=== PATIENT | male | born 1950 | race Two or more races ===

== ENCOUNTER 2024-01-04 08:01 | Inpatient (IN) | payer MEDICARE, OTHER ==
[~2024-01-04] VITALS: Ht 160 cm; Wt 63.0 kg
[2024-01-04] MEDS: cloNIDine HCL 0.1 MG TAB PO ONE (09:12)
[2024-01-04 09:35] LABS: Basophils # (auto) 0 10 ^3/uL (0-0.2); Basophils % (auto) 0.5 % (0.0-2.0); Eosinophils # (auto) 0.1 10 ^3/uL (0-0.8); Eosinophils % (auto) 1.6 % (0.0-7.0); Hematocrit 42.6 % (41.0-53.0); Hemoglobin 15.2 g/dL (13.5-17.5); Lymphocytes # (auto) 1.3 10 ^3/uL (0.4-5.4); Lymphocytes % (auto) 19.2 % (10.0-50.0); Mean Corpuscular Hemoglobin 32.3 pg (28.0-32.0); Mean Corpuscular Hgb Conc. 35.7 g/dL (32.0-36.0); Mean Corpuscular Volume 90.4 fL (80.0-100.0); Monocytes # (auto) 0.5 10 ^3/uL (0-1.3); Monocytes % (auto) 7.1 % (0.0-12.0); Neutrophils # (auto) 4.8 10 ^3/uL (1.6-8.6); Neutrophils % (auto) 71.6 % (37.0-80.0); Nucleated Red Blood Cells % 0.1 %; Platelet Count (auto) 308 10^3/uL (140-450); Red Blood Cells 4.71 10^6/uL (4.5-5.90); White Blood Cell 6.7 10^3/uL (4.4-10.8)
[2024-01-04 09:47] LABS: Chloride 94 mmol/L (98-107); Potassium 4.1 mmol/L (3.5-5.1); Sodium 128 mmol/L (136-145)
[2024-01-04 09:48] LABS: Anion Gap 6 (5-15); Carbon Dioxide 28 mmol/L (20-30)
[2024-01-04 09:53] LABS: BUN/Creatinine Ratio 10.1 (10.0-20.0); Blood Urea Nitrogen 9 mg/dL (9-23); Glucose 97 mg/dL (74-106)
[2024-01-04 12:00] VITALS: PULSE 61; RESP 18; O2SAT 100
[2024-01-04] MEDS ORDERED: ONDANSETRON HCL 4 MG/2 ML VIAL IV PRN (13:30)
[2024-01-04] MEDS ORDERED: MORPHINE SULFATE INJ 2 MG/ml SYRG IV PRN (13:30)
[2024-01-04] MEDS ORDERED: DOCUSATE SOD 100 MG CAP PO PRN (13:30)
[2024-01-04] MEDS ORDERED: MECLIZINE HCL 25 MG TAB PO PRN (13:30)
[2024-01-04] MEDS ORDERED: NITROGLYCERIN 0.4 MG SL TAB SL PRN (13:30)
[2024-01-04] MEDS ORDERED: HYDROcodone-ACET 5/325MG TAB PO PRN (13:30)
[2024-01-04] MEDS ORDERED: ACETAMINOPHEN 325 MG TAB PO PRN (13:30)
[2024-01-04] MEDS: SODIUM CHLORIDE 0.9% 1,000 ML IV SCH (13:53)
[2024-01-04] MEDS: NIFEdipine ER 30 MG TAB PO ONE (14:32)
[2024-01-04 23:30] VITALS: BP 116/71; PULSE 80; RESP 18; TEMP 97.8; O2SAT 94
[2024-01-05 01:09] VITALS: BP 100/63; PULSE 74; RESP 18; TEMP 97.9; O2SAT 97
[2024-01-05 05:00] VITALS: BP 117/75; PULSE 92; RESP 18; TEMP 97.6; O2SAT 97
[2024-01-05] MEDS ORDERED: ENAL1TAB47 PO (07:30)
[2024-01-05 08:00] VITALS: PULSE 71
[2024-01-05 09:00] VITALS: BP 132/84; PULSE 79; RESP 16; TEMP 97.6; O2SAT 96
[2024-01-05] MEDS: ENALAPRIL MALEATE 10 MG TAB PO SCH (10:11)
[2024-01-05] MEDS: ENOXAPARIN SOD 40 MG/0.4 ML SYRINGE SC SCH (10:14)
[2024-01-05 12:15] VITALS: BP 139/77; PULSE 91; RESP 16; TEMP 98; O2SAT 95
== END 2024-01-05 12:30 | disposition home or self-care (01) | DRG 305 ==
LOC: ER 08:01 → TELE 13:30 → TELE-CENTR 21:50
PROVIDERS: ADMIT Nurse Practitioner; ATTEND Nurse Practitioner
DX: I16.0 Hypertensive urgency (principal); E87.1 Hypo-osmolality and hyponatremia; I10 Essential (primary) hypertension
CPT/HCPCS: 36415; 70450; 70551; 80048; 84484; 85025; 93005; G0378

== ENCOUNTER 2024-01-31 13:33 | Inpatient (IN) | payer MEDICARE, OTHER ==
[~2024-01-31] VITALS: Ht 160 cm; Wt 60.1 kg
[~2024-01-31 13:33] MED LIST: ENAL1TAB47 PO
--- NOTE | 2024-01-31 14:19 | ED.PDOC ---
GI ASSESSMENT HPI Comments 73 year old male presents to the ED with chief complaint of abdominal pain. Patient reports that he has been experiencing 6/10 left suprapubic pain for the past week along with associated dizziness at worship today. Patient relays that he had similar dizziness in December, being seen and admitted in [facility]. Patient denies any N/V/D, chest pain, SOB, fever, chills, or headache. Chief Complaint: High Blood Pressure Time Seen by MD: 14:12 Primary Care Provider: AARTI Reviewed Notes: Nurses Notes, Medications, Allergies Allergies: Coded Allergies: NO KNOWN ALLERGIES (Unverified , 01/04/24) Home Meds Reported Medications Enalapril Maleate (Enalapril Maleate) 10 Mg Tab, 1 TAB PO DAILY 01/05/24 Information Source: Patient Mode of Arrival: Ambulatory Timing: Days Duration: Since onset Prehospital treatment: None Quality: Aching Vomitus: None Stool: Normal Severity: Moderate Recent: None Recent Hx of: None Pain Location: LLQ Modifying Factors: Nothing Associated sign and symptoms: Abdominal Pain, Other (Dizziness) Past Medical History PAST MEDICAL HISTORY: HTN Surgical History (Other): Cataract surgery Family History Family History: Reviewed,noncontributory to illness Social History Smoker: Non-Smoker Alcohol: Denies ETOH Use Drugs: Denies Drug Use Lives In: Home Constitutional: denies: chills, diaphoresis, fatigue, fever, malaise, sweats, weakness, others EENTM: denies: blurred vision, double vision, ear bleeding, ear discharge, ear drainage, ear pain, ear ringing, eye pain, eye redness, hearing loss, mouth pain, mouth swelling, nasal discharge, nose bleeding, nose congestion, nose pain, photophobia, tearing, throat pain, throat swelling, voice changes, others Respiratory: denies: cough, hemoptysis, orthopnea, SOB at rest, shortness of breath, SOB with excertion, stridor, wheezing, others Cardiovascular: denies: chest pain, dizzy spells, diaphoresis, Dyspnea on exertion, edema, irregular heart beat, left arm pain, lightheadedness, palpitations, PND, syncope, others Gastrointestinal: reports: abdominal pain; denies: abdomen distended, blood streaked bowels, constipated, diarrhea, dysphagia, difficulty swallowing, hematemesis, melena, nausea, poor appetite, poor fluid intake, rectal bleeding, rectal pain, vomiting, others Genitourinary: denies: burning, dysuria, flank pain, frequency, hematuria, incontinence, penile discharge, penile sore, pain, testicle pain, testicle swelling, urgency, others Neurological: reports: dizziness; denies: fainting, headache, left sided numbness, left sided weakness, numbness, paresthesia, pre-existing deficit, rig ht sided numbness, right sided weakness, seizure, speech problems, tingling, tremors, weakness, others Musculoskeletal: denies: back pain, gout, joint pain, joint swelling, muscle pain, muscle stiffness, neck pain, others Integumetry: denies: bruises, change in color, change in hair/nails, dryness, laceration, lesions, lumps, rash, wounds, others Allergic/Immunocompromised: denies: Difficulty Healing, Frequent Infections, Hives, Itching, others Hematologic/Lymphatic: denies: anemia, blood clots, easy bleeding, easy bruising, swollen glands, others Endocrine: denies: excessive hunger, excessive sweating, excessive thirst, excessive urination, flushing, intolerance to cold, intolerance to heat, unexplained weight gain, unexplained weight loss, others Psychiatric: denies: anxiety, bipolar disorder, depression, hopeless, panic disorder, schizophrenia, sleepless, suicidal, others All Other Systems: Reviewed and Negative Physical Exam General Appearance: Mild Distress HEENT: Normal ENT Inspection, Pharynx Normal, TMs Normal Neck: Full Range of Motion, Non-Tender, Normal, Normal Inspection Respiratory: Chest Non-Tender, Lungs Clear, No Accessory Muscle Use, No Respiratory Distress, Normal Breath Sounds Cardiovascular: No Edema, No JVD, No Murmur, No Gallop, Normal Peripheral Pulses, Regular Rate/Rhythm Breast Exam: Deferred Gastrointestinal: LLQ, No Organomegaly, No Pulsatile Mass, Normal Bowel Sounds, Soft, Tenderness Genitalia: Deferred Pelvic: Deferred Rectal: Deferred Extremities: No calf tenderness, Normal capillary refill, Normal inspection, Normal range of motion, Non-tender, No pedal edema Musculoskeletal : Apperance: Normal Neurologic: Alert, technical rep II-XII nml as Tested, No Motor Deficits, Normal Affect, Normal Mood, No Sensory Deficits Cerebellar Function: Normal Reflexes: Normal Skin: Dry, Normal Color, Warm Lymphatic: No Adenopathy EKG EKG : Pulse Rate (adult): 82 [place]: RAD Cardiac Rhythm: NSR Block: None Hypertrophy: None ST: Normal Was a procedure done? Was a procedure done?: No GI differential Dx Differential Diagnosis: Gastritis/PUD, Gastroenteritis, Inflammatory BD, Pancreatitis, UTI, Electrolyte Imbalance, Food Poisoning X-Ray, Labs, Meds, VS Vital Signs Date Time Temp Pulse Resp B/P (MAP) Pulse Ox O2 Delivery O2 Flow Rate FiO2 01/31/24 14:34 85 18 96 Room Air* 0 21 01/31/24 14:34 98.4 85 18 143/88 (106) 96 98.4 01/31/24 14:19 82 01/31/24 13:59 82 01/31/24 13:55 97.8 83 15 171/78 (109) 98 Lab Test 01/31/24 15:57 01/31/24 15:15 01/31/24 13:53 Range/Units Urine Color Pending Urine Clarity Pending Urine pH Pending Urine Specific [place] Pending Urine Protein Pending Urine Ketones Pending Urine Blood Pending Urine Nitrite Pending Urine Bilirubin Pending Urine Urobilinogen Pending Urine Leukocyte Esterase Pending Urine RBC Pending Urine WBC Pending Urine Squamous Epithelial Cells Pending Urine Bacteria Pending Urine Glucose Pending White Blood Count Pending Red Blood Count Pending Hemoglobin Pending Hematocrit Pending Mean Corpuscular Volume Pending Mean Corpuscular Hemoglobin Pending Mean Corpuscular Hemoglobin Concent Pending Red Cell Distribution Width Pending Platelet Count Pending Mean Platelet Volume Pending Neutrophils (%) (Auto) Pending Lymphocytes (%) (Auto) Pending Monocytes (%) (Auto) Pending Basophils (%) (Auto) Pending Neutrophils # (Auto) Pending Lymphocytes # (Auto) Pending Monocytes # (Auto) Pending Sodium Level Pending Potassium Level Pending Chloride Level Pending Carbon Dioxide Level Pending Anion Gap Pending Blood Urea Nitrogen Pending Creatinine Pending Glomerular Filtration Rate Calc Pending BUN/Creatinine Ratio Pending Serum Glucose Pending Calcium Level Pending Total Bilirubin Pending Aspartate Amino Transferase (AST) Pending Alanine Aminotransferase (ALT) Pending Alkaline Phosphatase Pending Total Protein Pending Albumin Pending POC Glucose 86 70-106 mg/dl Current Medications Medications (Trade) Dose Ordered Sig/Aicha Route Start Time Stop Time Status Last Admin Sodium Chloride 500 ml @ 500 mls/hr Q1H ONCE IV 01/31/24 14:15 01/31/24 15:14 DC 01/31/24 14:37 CT Abd/Pel indicates: 1. Possible small calcified gallstones recommend gallbladder ultrasound. 2. 2.4 cm fat containing left inguinal hernia. 3. No findings to suggest bowel obstruction. 4. No nephrolithiasis or hydronephrosis. The patient had an IV Hep-Lock established and given normal saline as a bolus The patient does have some gallstones on the CT scan The patient also has a left inguinal hernia Images Reviewed?: Images reviewed and evaluated by me Time of 1ST Reevaluation: 16:14 Reevaluation 1ST: Unchanged Patient Education/Counseling: Diagnosis, Treatment, Prognosis Family Education/Counseling: No Family Present Departure 1 Departure Time of Disposition: 16:14 Impression: Primary Impression: Left inguinal hernia Additional Impressions: Gallstones Autonomic dysfunction Disposition: ADMITTED INPATIENT Admit to: Tele Condition: Fair Critical Care Note Critical Care Time?: Yes (35 min-critical care time only) Stability Stability form required: Yes Unstable for transfer: Telemetry monitoring (Telemetry monitoring required), ED Physician Assesment (Clinical assesment) Heart Score Heart Score: Heart Score Response (Comments) Value History N/A 0 EKG N/A 0 Age N/A 0 Risk Factors N/A 0 Troponin N/A 0 Total 0 I personally scribed for SURYA SKELTON MD ([email or web address]) on 01/31/24 at 14:19. Electronically submitted by Joshua Monahan ([email or web address]). I personally scribed for SURYA SKELTON MD ([email or web address]) on 01/31/24 at 15:32. Electronically submitted by Joshua Monahan ([email or web address]). SURYA SKELTON MD Jan 31, 2024 14:19
[2024-01-31 14:34] VITALS: PULSE 85; RESP 18; O2SAT 96
[2024-01-31] MEDS: SODIUM CHLORIDE 0.9% 500 ML IV ONE (14:37)
--- NOTE | 2024-01-31 15:29 | DVH ---
Exam: CT CT AB PEL WO CON-NO ORAL OR IV History: pain Comparison Study: None available at time of dictation. TECHNIQUE: Multidetector CT of the abdomen was performed from lung bases to pubic symphysis. Imaging was performed without IV contrast. Axial, coronal and sagittal multiplanar reformats were obtained fr om the axial data set by the technologist. Radiation Dose Information: CT Dose: CTDI volume is 8.17 mGy. Dose-length product is 464.61 mGy*cm FINDINGS: Evaluation of solid organs is limited due to lack of intravenous contrast use. Findings: Lung Bases: No acute or significant lung base finding. Normal heart size. No pleural or pericardial effusion. Liver: The liver is normal in size. No focal lesions. Gallbladder and Biliary Tree: Suspect small calcified gallstones. Recommend gallbladder ultrasound. Spleen: Unremarkable Pancreas: The pancreas is grossly normal in appearance. Adrenal Glands: Unremarkable Kidneys: Kidneys are grossly normal without calculi or hydronephrosis. Bladder: Grossly unremarkable for degree of distention. Bowel: The stomach is grossly normal in appearance. Small bowel and colon are normal in caliber and d istribution. The appendix is not visualized; however, no secondary findings of acute appendicitis id entified. Ascites: Absent Lymphadenopathy: No mesenteric, retroperitoneal or periportal lymphadenopathy. Abdominal Wall and Mesentery: 2.4 cm fat containing left inguinal hernia. Vasculature: The visualized abdominal aorta is normal in size and caliber. Evaluation of abdominal a nd pelvic vessels is limited due to lack of intravenous contrast. Pelvic Organs: Unremarkable Musculoskeletal: No aggressive focal bony lesions, acute fractures or dislocation. Soft tissues: Unremarkable IMPRESSION: 1. Possible small calcified gallstones recommend gallbladder ultrasound. 2. 2.4 cm fat containing left inguinal hernia. 3. No findings to suggest bowel obstruction. 4. No nephrolithiasis or hydronephrosis. Radiation optimization: All CT scans at this facility use at least one of these dose optimization te chniques: automated exposure control mA and/or kV adjustment per patient size (includes targeted exa ms where dose is matched to clinical indication) or iterative reconstruction.
[2024-01-31 15:39] LABS: Basophils # (auto) 0 10 ^3/uL (0-0.2); Basophils % (auto) 0.7 % (0.0-2.0); Eosinophils # (auto) 0.2 10 ^3/uL (0-0.8); Eosinophils % (auto) 2.2 % (0.0-7.0); Hematocrit 42.4 % (41.0-53.0); Lymphocytes # (auto) 1.3 10 ^3/uL (0.4-5.4); Lymphocytes % (auto) 18.6 % (10.0-50.0); Mean Corpuscular Hemoglobin 32.2 pg (28.0-32.0); Mean Corpuscular Hgb Conc. 35.3 g/dL (32.0-36.0); Mean Corpuscular Volume 91.3 fL (80.0-100.0); Monocytes # (auto) 0.5 10 ^3/uL (0-1.3); Monocytes % (auto) 7.7 % (0.0-12.0); Neutrophils # (auto) 4.9 10 ^3/uL (1.6-8.6); Neutrophils % (auto) 70.8 % (37.0-80.0); Nucleated Red Blood Cells % 0.1 %; Platelet Count (auto) 321 10^3/uL (140-450); Red Blood Cells 4.64 10^6/uL (4.5-5.90); Red Cell Distribution Width 12.8 % (11.8-14.3); White Blood Cell 6.9 10^3/uL (4.4-10.8)
[2024-01-31 15:54] LABS: Alanine Aminotransferase 24 U/L (7-40); Albumin 4.8 g/dL (3.2-4.8); Alkaline Phosphatase 58 U/L (46-116); Anion Gap 4 (5-15); Aspartate Aminotransferase 25 U/L (13-40); BUN/Creatinine Ratio 10.6 (10.0-20.0); Blood Urea Nitrogen 9 mg/dL (9-23); Calcium 9.8 mg/dL (8.7-10.4); Carbon Dioxide 28 mmol/L (20-31); Chloride 94 mmol/L (98-107); Glucose 87 mg/dL (74-106); Potassium 4.1 mmol/L (3.5-5.1); Sodium 126 mmol/L (136-145); Total Protein 7.3 g/dL (5.7-8.2)
[2024-01-31 15:59] LABS: Urine Bacteria None Seen /hpf (None Seen); Urine WBC None Seen /hpf (0 - 3)
[2024-01-31 16:12] LABS: Urine Blood Negative /uL (Negative); Urine Clarity Clear (Clear); Urine Color Colorless (Yellow); Urine Protein, UAD Negative (Negative); Urine Specific Gravity 1.007 (1.001-1.035); Urine Urobilinogen Normal (Negative); Urine pH 7.5 (5.0-9.0)
[2024-01-31] MEDS ORDERED: ONDANSETRON HCL 4 MG/2 ML VIAL IV PRN (21:30)
[2024-01-31] MEDS ORDERED: ACETAMINOPHEN 325 MG TAB PO PRN (21:30)
[2024-01-31] MEDS ORDERED: MORPHINE SULFATE INJ 2 MG/ml SYRG IV PRN (21:30)
[2024-01-31] MEDS ORDERED: NITROGLYCERIN 0.4 MG SL TAB SL PRN (21:30)
[2024-02-01] MEDS: HYDROcodone-ACET 5/325MG TAB PO PRN (01:14)
[2024-02-01] MEDS: SODIUM CHLORIDE 0.9% 1,000 ML IV SCH (02:26)
[2024-02-01 04:45] LABS: Basophils # (auto) 0.1 10 ^3/uL (0-0.2); Eosinophils # (auto) 0.3 10 ^3/uL (0-0.8); Eosinophils % (auto) 4.8 % (0.0-7.0); Hematocrit 40.3 % (41.0-53.0); Hemoglobin 14.1 g/dL (13.5-17.5); Lymphocytes # (auto) 2.3 10 ^3/uL (0.4-5.4); Lymphocytes % (auto) 37.4 % (10.0-50.0); Mean Corpuscular Hemoglobin 31.9 pg (28.0-32.0); Mean Corpuscular Hgb Conc. 34.9 g/dL (32.0-36.0); Mean Corpuscular Volume 91.5 fL (80.0-100.0); Monocytes # (auto) 0.6 10 ^3/uL (0-1.3); Monocytes % (auto) 9.7 % (0.0-12.0); Neutrophils # (auto) 2.9 10 ^3/uL (1.6-8.6); Neutrophils % (auto) 47.1 % (37.0-80.0); Platelet Count (auto) 297 10^3/uL (140-450); Red Blood Cells 4.41 10^6/uL (4.5-5.90); Red Cell Distribution Width 13.1 % (11.8-14.3); White Blood Cell 6.3 10^3/uL (4.4-10.8)
[2024-02-01 04:54] LABS: Alanine Aminotransferase 20 U/L (7-40); Albumin 4.4 g/dL (3.2-4.8); Alkaline Phosphatase 53 U/L (46-116); Anion Gap 4 (5-15); Aspartate Aminotransferase 20 U/L (13-40); BUN/Creatinine Ratio 8.4 (10.0-20.0); Bilirubin, Total 0.7 mg/dL (0.2-1.0); Blood Urea Nitrogen 7 mg/dL (9-23); Calcium 9.6 mg/dL (8.7-10.4); Carbon Dioxide 26 mmol/L (20-31); Chloride 100 mmol/L (98-107); Glucose 83 mg/dL (74-106); Potassium 3.8 mmol/L (3.5-5.1); Sodium 130 mmol/L (136-145); Total Protein 6.7 g/dL (5.7-8.2)
--- NOTE | 2024-02-01 13:16 | DVHINCON2 ---
GI Consult Consult Note GI consult note Date of Consultation: 02/01/2024 Chief Complaint: Gallstones Referring Physician: Dr. Rodriguez H&P: 73-year-old male admitted with abdominal pain, RN at bedside translating Patient complaining of left-sided inguinal pain for two weeks. Patient has regular bowel movements, which causes more pain in the left groin area. No melena or red blood in stool No right upper quadrant pain. No nausea or vomiting Past Medical History: HTN Past Surgical History: Cataract surgery Social History: NO smoking, drinking ETOH and use of illegal drugs. Family History: Noncontributory Review of Systems: Constitutional: no fever, chill, weight loss HEENT: no eye pain, no hearing loss, no oral lesion, no scleral icterus Heart: no chest pain, no chest pressure Lung: no cough, no dyspnea with exertion Abdomen: see HPI Physical exam: General: NAD, AAOX3 Chest: lung ruiz clear to auscultation Heart: RRR, no murmur Abdomen: non-distended, tenderness left groin area, +BS Labs: Labs Test 02/01/24 03:58 01/31/24 15:57 01/31/24 13:53 Range/Units White Blood Count 6.3 4.4-10.8 10^3/uL Red Blood Count 4.41 L 4.5-5.90 10^6/uL Hemoglobin 14.1 13.5-17.5 g/dL Hematocrit 40.3 L 41.0-53.0 % Mean Corpuscular Volume 91.5 80.0-100.0 fL Mean Corpuscular Hemoglobin 31.9 28.0-32.0 pg Mean Corpuscular Hemoglobin Concent 34.9 32.0-36.0 g/dL Red Cell Distribution Width 13.1 11.8-14.3 % Platelet Count 297 140-450 10^3/uL Mean Platelet Volume 6.5 L 6.9-10.8 fL Neutrophils (%) (Auto) 47.1 37.0-80.0 % Lymphocytes (%) (Auto) 37.4 10.0-50.0 % Monocytes (%) (Auto) 9.7 0.0-12.0 % Eosinophils (%) (Auto) 4.8 0.0-7.0 % Basophils (%) (Auto) 1.0 0.0-2.0 % Neutrophils # (Auto) 2.9 1.6-8.6 10 ^3/uL Lymphocytes # (Auto) 2.3 0.4-5.4 10 ^3/uL Monocytes # (Auto) 0.6 0-1.3 10 ^3/uL Eosinophils # (Auto) 0.3 0-0.8 10 ^3/uL Basophils # (Auto) 0.1 0-0.2 10 ^3/uL Nucleated Red Blood Cells 0.0 % Sodium Level 130 L 136-145 mmol/L Potassium Level 3.8 3.5-5.1 mmol/L Chloride Level 100 98-107 mmol/L Carbon Dioxide Level 26 20-31 mmol/L Anion Gap 4 L 5-15 Blood Urea Nitrogen 7 L 9-23 mg/dL Creatinine 0.83 0.700-1.30 mg/dL Glomerular Filtration Rate Calc 92 >90 mL/min BUN/Creatinine Ratio 8.4 L 10.0-20.0 Serum Glucose 83 74-106 mg/dL Calcium Level 9.6 8.7-10.4 mg/dL Total Bilirubin 0.7 0.2-1.0 mg/dL Aspartate Amino Transferase (AST) 20 13-40 U/L Alanine Aminotransferase (ALT) 20 7-40 U/L Alkaline Phosphatase 53 46-116 U/L Total Protein 6.7 5.7-8.2 g/dL Albumin 4.4 3.2-4.8 g/dL Urine Color Colorless Yellow Urine Clarity Clear Clear Urine pH 7.5 5.0-9.0 Urine Specific [place] 1.007 1.001-1.035 Urine Protein Negative Negative Urine Ketones Negative Negative Urine Blood Negative Negative /uL Urine Nitrite Negative Negative Urine Bilirubin Negative Negative Urine Urobilinogen Normal Negative mg/dL Urine Leukocyte Esterase Negative Negative /uL Urine RBC 1 0 - 3 /hpf Urine WBC None seen 0 - 3 /hpf Urine Squamous Epithelial Cells Few <5 /hpf Urine Bacteria None seen None Seen /hpf Urine Glucose Normal Normal mg/dL POC Glucose 86 70-106 mg/dl Imaging: CT abdomen pelvis IMPRESSION: 1. Possible small calcified gallstones recommend gallbladder ultrasound. 2. 2.4 cm fat containing left inguinal hernia. 3. No findings to suggest bowel obstruction. 4. No nephrolithiasis or hydronephrosis. Assessment: Abdominal pain Possible gallstone Left inguinal hernia Plan: Discussed with Dr. Pool Ultrasound of gallbladder Monitor labs Recommend surgical consult for left inguinal hernia if pain persists Discussed plan with patient and RN Thank you for this consult Date of Service: Feb 01, 2024 Billing Provider: DON STEWART Common Visit Codes: CONSULT ONLY Consultation Codes: [id number] CONSULT <45MIN DON STEWART Feb 01, 2024 13:15
--- NOTE | 2024-02-01 14:25 | DVH ---
INDICATION: possible gallstones TECHNIQUE: Multiple real-time sonographic images were obtained of the right upper quadrant. COMPARISON: None FINDINGS: The liver demonstrates homogenous echotexture without focal mass lesions. The liver measure s 12.1 cm. There is no intrahepatic or extrahepatic ductal dilatation. The common duct measures 5 mm. No gallstones. Gallbladder sludge. The gallbladder wall measures 3 mm and is within normal limits. The right kidney measures 9.4 cm. The right kidney is normal in contour, size, and shape. The echo genicity is normal. There is no hydronephrosis. The pancreas is not well visualized due to overlying bowel gas. IMPRESSION: Gallbladder sludge . No sonographic evidence of acute cholecystitis.
[2024-02-01] MEDS: D5W/SOD CHL 0.45%/KCL 20MEQ 1,000 ML IV SCH (15:34)
--- NOTE | 2024-02-01 16:27 | DVHHP2 ---
Admitting Diagnosis: Abdominal Pain History of Present Illness Patient is a 73 year old male who is presenting to the Emergency Department with a complaint of abdominal pain. Patient states that he has been experiencing left suprapubic pain for 1x week with dizziness. Patient denies Nausea, Vomiting, or Diarrhea. Patient also denies SOB, Fever, Headache, or Chills. While in the emergency department the patient was evaluated by the provider, Labs, vital signs, and imagining monitored. Patient will be admitted for further evaluation and treatment. I discussed admission with the patient/family and is in agreement to treatment plan. H&P for 01/31/2024. Allergies: Coded Allergies: NO KNOWN ALLERGIES (Unverified , 01/04/24) Home Meds Reported Medications Enalapril Maleate (Enalapril Maleate) 10 Mg Tab, 1 TAB PO DAILY 01/05/24 Current Medications Current Medications Medications (Trade) Dose Ordered Sig/Aicha Route PRN Reason Start Time Stop Time Status Last Admin Sodium Chloride 1,000 ml @ 120 mls/hr Q8H20M IV 01/31/24 21:30 02/01/24 14:39 DC 02/01/24 05:50 Acetaminophen (Tylenol Tablet) 325 mg Q4HP PRN PO MILD PAIN (1-3 PAIN SCALE) 01/31/24 21:30 Acetaminophen/ Hydrocodone Bitart ([place] 5/325MG Tab) 1 tab Q4HP PRN PO MODERATE PAIN (4-6 PAIN SCALE) 01/31/24 21:30 02/01/24 01:14 Ondansetron HCl (Zofran) 4 mg Q4HP PRN IV NAUSEA / VOMITING 01/31/24 21:30 Morphine Sulfate 2 mg Q4HPRN PRN IV SEVERE PAIN (7-10 PAIN SCALE) 01/31/24 21:30 Nitroglycerin (Ntrostat Sublingual) 0.4 mg Q5MINP PRN SL FOR CHEST PAIN 01/31/24 21:30 Morphine Sulfate 2 mg Q30M PRN IV FOR CHEST PAIN 01/31/24 21:30 Enalapril Maleate (Vasotec Tablet) 10 mg DAILY PO 02/02/24 10:00 Enoxaparin Sodium (Lovenox) 40 mg DAILY SC 02/02/24 10:00 Famotidine (Pepcid Tablet) 20 mg Q12HR PO 02/01/24 22:00 Potassium Chloride/Dextrose/ Sod Cl 1,000 ml @ 100 mls/hr Q10H IV 02/01/24 14:45 02/01/24 15:34 Review of Systems Constitutional: denies chills, denies fever, denies malaise Eyes: denies eye pain, denies vision change ENT: denies ear pain, denies headache, denies nasal congestion, denies painful swallowing, denies voice change Cardiovascular: denies chest pain, denies edema, denies orthopnea, denies palpitations, denies paroxysmal nocturnal dyspnea Respiratory: denies cough, denies shortness of breath Gastrointestinal: denies constipation, denies diarrhea, denies nausea, denies vomiting Genitourinary: denies dysuria, denies frequent urination, denies urethral discharge Musculoskeletal: denies back pain, denies joint pain, denies muscle pain Skin: denies bruising, denies itching, denies rash Neurological: denies focal weakness, denies headache, denies sensory changes Psychiatric: denies anxiety, denies depression Endocrine: denies polydipsia, denies polyuria Hematologic/Lymphatic: denies easy bleeding, denies easy bruising, denies enlarged lymph nodes Allergic/Immunologic: denies allergy, denies hives Vital Signs Vital Signs Date Time Temp Pulse Resp B/P (MAP) Pulse Ox O2 Delivery O2 Flow Rate FiO2 02/01/24 16:16 98.3 86 16 158/84 (108) 99 98.3 01/31/24 20:48 Room Air 01/31/24 14:34 0 21 Physical Exam General Appearance: alert, no distress HEENT: EOMI, PERRLA, normal external inspect of ears, no icterus, no nasal drainage Neck: no carotid bruit, no jugular venous distention (JVD), no lymphadenopathy Chest: normal thorax Respiratory: clear to auscultation, normal air movement Cardiovascular: regular rate and rhythm, no diastolic murmur, no jugular venous distention (JVD), no rub, no systolic murmur Abdominal: soft, no hepatomegaly, no mass, no splenomegaly Genitourinary: grossly normal external Musculoskeletal: no joint tenderness, no swelling Extremities: normal pulses, no calf tenderness, no clubbing, no cyanosis, no edema Skin: no bruising, no jaundice, no rash Neurological: alert, No focal deficit Results Labs Test 02/01/24 15:55 02/01/24 03:58 01/31/24 15:57 01/31/24 13:53 Range/Units White Blood Count 6.3 4.4-10.8 10^3/uL Red Blood Count 4.41 L 4.5-5.90 10^6/uL Hemoglobin 14.1 13.5-17.5 g/dL Hematocrit 40.3 L 41.0-53.0 % Mean Corpuscular Volume 91.5 80.0-100.0 fL Mean Corpuscular Hemoglobin 31.9 28.0-32.0 pg Mean Corpuscular Hemoglobin Concent 34.9 32.0-36.0 g/dL Red Cell Distribution Width 13.1 11.8-14.3 % Platelet Count 297 140-450 10^3/uL Mean Platelet Volume 6.5 L 6.9-10.8 fL Neutrophils (%) (Auto) 47.1 37.0-80.0 % Lymphocytes (%) (Auto) 37.4 10.0-50.0 % Monocytes (%) (Auto) 9.7 0.0-12.0 % Eosinophils (%) (Auto) 4.8 0.0-7.0 % Basophils (%) (Auto) 1.0 0.0-2.0 % Neutrophils # (Auto) 2.9 1.6-8.6 10 ^3/uL Lymphocytes # (Auto) 2.3 0.4-5.4 10 ^3/uL Monocytes # (Auto) 0.6 0-1.3 10 ^3/uL Eosinophils # (Auto) 0.3 0-0.8 10 ^3/uL Basophils # (Auto) 0.1 0-0.2 10 ^3/uL Nucleated Red Blood Cells 0.0 % Sodium Level 130 L 136-145 mmol/L Potassium Level 3.8 3.5-5.1 mmol/L Chloride Level 100 98-107 mmol/L Carbon Dioxide Level 26 20-31 mmol/L Anion Gap 4 L 5-15 Blood Urea Nitrogen 7 L 9-23 mg/dL Creatinine 0.83 0.700-1.30 mg/dL Glomerular Filtration Rate Calc 92 >90 mL/min BUN/Creatinine Ratio 8.4 L 10.0-20.0 Serum Glucose 83 74-106 mg/dL Calcium Level 9.6 8.7-10.4 mg/dL Total Bilirubin 0.7 0.2-1.0 mg/dL Aspartate Amino Transferase (AST) 20 13-40 U/L Alanine Aminotransferase (ALT) 20 7-40 U/L Alkaline Phosphatase 53 46-116 U/L Total Protein 6.7 5.7-8.2 g/dL Albumin 4.4 3.2-4.8 g/dL Urine Color Colorless Yellow Urine Clarity Clear Clear Urine pH 7.5 5.0-9.0 Urine Specific [place] 1.007 1.001-1.035 Urine Protein Negative Negative Urine Ketones Negative Negative Urine Blood Negative Negative /uL Urine Nitrite Negative Negative Urine Bilirubin Negative Negative Urine Urobilinogen Normal Negative mg/dL Urine Leukocyte Esterase Negative Negative /uL Urine RBC 1 0 - 3 /hpf Urine WBC None seen 0 - 3 /hpf Urine Squamous Epithelial Cells Few <5 /hpf Urine Bacteria None seen None Seen /hpf Urine Glucose Normal Normal mg/dL POC Glucose 86 70-106 mg/dl Admitting Diagnosis: 1. Benign Essential HTN Antihypertensives, Monitoring 2. Left inguinal hernia causing pain Medication, Montioring 3. Gallstones Surgical Consult, monitoring Plan discussed with: Patient, Other CHAN RUVALCABA NP Feb 01, 2024 16:27
--- NOTE | 2024-02-01 16:32 | DVHPN2 ---
Progress Note - Dictate Date Seen: Feb 01, 2024 Medical Necessity Reason Pt with a Central, PICC or Fol: No vital signs Vital Sign Date Time Temp Pulse Resp B/P (MAP) Pulse Ox O2 Delivery O2 Flow Rate FiO2 02/01/24 16:16 98.3 86 16 158/84 (108) 99 98.3 01/31/24 20:48 Room Air 01/31/24 14:34 0 21 Total Intake and Output 01/31/24 01/31/24 02/01/24 15:00 23:00 07:00 Intake Total 500 ml Balance 500 ml medications Current Medications Medications Dose Ordered Sig/Aicha Route Start Time Stop Time Status Last Admin Dose Admin Acetaminophen 325 mg Q4HP PRN PO 01/31/24 21:30 Acetaminophen/ Hydrocodone Bitart 1 tab Q4HP PRN PO 01/31/24 21:30 02/01/24 01:14 Ondansetron HCl 4 mg Q4HP PRN IV 01/31/24 21:30 Morphine Sulfate 2 mg Q4HPRN PRN IV 01/31/24 21:30 Nitroglycerin 0.4 mg Q5MINP PRN SL 01/31/24 21:30 Morphine Sulfate 2 mg Q30M PRN IV 01/31/24 21:30 Enalapril Maleate 10 mg DAILY PO 02/02/24 10:00 Enoxaparin Sodium 40 mg DAILY SC 02/02/24 10:00 Famotidine 20 mg Q12HR PO 02/01/24 22:00 Potassium Chloride/Dextrose/ Sod Cl 1,000 ml @ 100 mls/hr Q10H IV 02/01/24 14:45 02/01/24 15:34 objective General Appearance: alert, no distress HEENT: EOMI, PERRLA, normal external inspect of ears, no icterus, no nasal drainage Neck: no carotid bruit, no jugular venous distention (JVD), no lymphadenopathy Chest: normal thorax Respiratory: clear to auscultation, normal air movement Cardiovascular: regular rate and rhythm, no diastolic murmur, no jugular venous distention (JVD), no rub, no systolic murmur Abdominal: soft, no hepatomegaly, no mass, no splenomegaly Genitourinary: grossly normal external Musculoskeletal: no joint tenderness, no swelling Extremities: normal pulses, no calf tenderness, no clubbing, no cyanosis, no edema Skin: no bruising, no jaundice, no rash Neurological: alert, No focal deficit laboratory and microbiology Laboratory Tests 02/01/24 03:58 Test 02/01/24 03:58 Range/Units Serum Glucose 83 74-106 mg/dL Problem List 1. Benign Essential HTN Antihypertensives, Monitoring 2. Left inguinal hernia causing pain Medication, Monitoring 3. Gallstones Surgical Consult, monitoring Assessment/Plan Subjective: Patient is awake and alert. Objective: Patient is awaiting evaluation for his left inguinal hernia by general surgery. He was admitted for abdominal pain, most likely related to the inguinal hernia. An ultrasound of the gallbladder is pending. The patient was also evaluated by GI. Plan: Continue current treatment. Arrange surgical evaluation for the painful left inguinal hernia and monitor daily labs. Plan discussed with: Patient, Other CHAN RUVALCABA NP Feb 01, 2024 16:32
[2024-02-01 16:34] LABS: INR 1.11 (0.9-1.15); Prothrombin Time 11.7 sec (9.3-11.8)
[2024-02-01] MEDS: hydrALAZINE HCL 20 MG/ML VL IV PRN (16:43)
--- NOTE | 2024-02-01 16:52 | DVHINCON2 ---
Date Seen: Feb 01, 2024 Referring Physician MD Miquel Reason for Consultation Cardiac risk stratification History of Present Illness This is a 73-year-old male patient who presents to emergency room with chief complaint of left inguinal pain and dizziness. The patient reports that he was at [employer]ian[employer] earlier yesterday when he started to become dizzy. He reports that initially he was having pain to his left inguinal area with some radiation to his suprapubic area. He reports that the pain became so severe that he started to feel dizzy. He came to the emergency room for further evaluation. Imaging done in the emergency room revealed a 2.4 cm fat containing left inguinal hernia. Surgery team was consulted and are planning for surgical intervention. Cardiology has now been consulted for cardiac risk stratification. Initial twelve lead electrocardiogram reveals normal sinus rhythm. The patient denies any cardiac symptoms including chest pain, shortness or breath, for palpitations. Significant past medical history includes hypertension and c ataracts. Of note, the patient came in with blood pressure reaching as high as 171/78. He denies any previous cardiac history or seeing a line crewman in the outpatient setting. Past Medical History Past medical history reviewed. No other significant than mentioned above. Past Surgical History Bilateral cataract removal Family History Family history reviewed. Social History Denies the use of tobacco, alcohol or illicit drugs. Allergies: Coded Allergies: NO KNOWN ALLERGIES (Unverified , 01/04/24) Home Meds Reported Medications Enalapril Maleate (Enalapril Maleate) 10 Mg Tab, 1 TAB PO DAILY 01/05/24 Home Meds Home medications reviewed. Current Medications Current Medications Medications (Trade) Dose Ordered Sig/Aicha Route PRN Reason Start Time Stop Time Status Last Admin Sodium Chloride 1,000 ml @ 120 mls/hr Q8H20M IV 01/31/24 21:30 02/01/24 14:39 DC 02/01/24 05:50 Acetaminophen (Tylenol Tablet) 325 mg Q4HP PRN PO MILD PAIN (1-3 PAIN SCALE) 01/31/24 21:30 Acetaminophen/ Hydrocodone Bitart ([place] 5/325MG Tab) 1 tab Q4HP PRN PO MODERATE PAIN (4-6 PAIN SCALE) 01/31/24 21:30 02/01/24 01:14 Ondansetron HCl (Zofran) 4 mg Q4HP PRN IV NAUSEA / VOMITING 01/31/24 21:30 Morphine Sulfate 2 mg Q4HPRN PRN IV SEVERE PAIN (7-10 PAIN SCALE) 01/31/24 21:30 Nitroglycerin (Ntrostat Sublingual) 0.4 mg Q5MINP PRN SL FOR CHEST PAIN 01/31/24 21:30 Morphine Sulfate 2 mg Q30M PRN IV FOR CHEST PAIN 01/31/24 21:30 Enalapril Maleate (Vasotec Tablet) 10 mg DAILY PO 02/02/24 10:00 Enoxaparin Sodium (Lovenox) 40 mg DAILY SC 02/02/24 10:00 Famotidine (Pepcid Tablet) 20 mg Q12HR PO 02/01/24 22:00 Potassium Chloride/Dextrose/ Sod Cl 1,000 ml @ 100 mls/hr Q10H IV 02/01/24 14:45 02/01/24 15:34 Hydralazine HCl (Apresoline Injection) 10 mg Q6HP PRN IV SBP>150 02/01/24 16:30 02/01/24 16:43 Review of Systems Constitutional: No symptom reported Ears, Nose, & Throat: No symptom reported Eyes: No symptom reported Neurological: Dizziness Pulmonary/Respiratory: No symptoms reported Cardiovascular: No symptom reported Gastrointestinal: No symptom reported Genitourinary: No symptom reported Musculoskeletal: Right inguinal pain Skin: No symptom reported Psychiatric: No symptom reported Endocrine: No symptom reported Hematologic/Lymphatic: No symptom reported Vital Signs Vital Signs Date Time Temp Pulse Resp B/P (MAP) Pulse Ox O2 Delivery O2 Flow Rate FiO2 02/01/24 16:43 158/84 02/01/24 16:16 98.3 86 16 99 98.3 01/31/24 20:48 Room Air 01/31/24 14:34 0 21 Physical Exam General Appearance: Cooperative. Well-developed. Well-nourished. No acute distress. Pulmonary/Respiratory: Clear, bilateral breaths sounds. Cardiovascular/Chest: Regular rate and rhythm. Peripheral Pulses: 2+ Radial (R). 2+ Radial (L). 2+ Pedal (R). 2+ Pedal (L) Abdominal Exam: Normal bowel sounds. Ankle Exam: Negative ankle edema Lower extremities: Negative lower extremity edema Neuro/Mental Status: A/OX4, coherent. Thoughts/Psych: Normal thought pattern. Appropriate mood and affect. Good judgment and insight. Appearance: No acute distress. Skin Exam: Normal inspection. Normal color. Warm and dry. Labs/Diagnostic Data Labs Test 02/01/24 15:55 02/01/24 03:58 01/31/24 15:57 01/31/24 13:53 Range/Units Prothrombin Time 11.7 9.3-11.8 sec Prothrombin Time INR 1.11 0.9-1.15 Activated Partial Thromboplast Time 30.0 24.5-34.5 SEC White Blood Count 6.3 4.4-10.8 10^3/uL Red Blood Count 4.41 L 4.5-5.90 10^6/uL Hemoglobin 14.1 13.5-17.5 g/dL Hematocrit 40.3 L 41.0-53.0 % Mean Corpuscular Volume 91.5 80.0-100.0 fL Mean Corpuscular Hemoglobin 31.9 28.0-32.0 pg Mean Corpuscular Hemoglobin Concent 34.9 32.0-36.0 g/dL Red Cell Distribution Width 13.1 11.8-14.3 % Platelet Count 297 140-450 10^3/uL Mean Platelet Volume 6.5 L 6.9-10.8 fL Neutrophils (%) (Auto) 47.1 37.0-80.0 % Lymphocytes (%) (Auto) 37.4 10.0-50.0 % Monocytes (%) (Auto) 9.7 0.0-12.0 % Eosinophils (%) (Auto) 4.8 0.0-7.0 % Basophils (%) (Auto) 1.0 0.0-2.0 % Neutrophils # (Auto) 2.9 1.6-8.6 10 ^3/uL Lymphocytes # (Auto) 2.3 0.4-5.4 10 ^3/uL Monocytes # (Auto) 0.6 0-1.3 10 ^3/uL Eosinophils # (Auto) 0.3 0-0.8 10 ^3/uL Basophils # (Auto) 0.1 0-0.2 10 ^3/uL Nucleated Red Blood Cells 0.0 % Sodium Level 130 L 136-145 mmol/L Potassium Level 3.8 3.5-5.1 mmol/L Chloride Level 100 98-107 mmol/L Carbon Dioxide Level 26 20-31 mmol/L Anion Gap 4 L 5-15 Blood Urea Nitrogen 7 L 9-23 mg/dL Creatinine 0.83 0.700-1.30 mg/dL Glomerular Filtration Rate Calc 92 >90 mL/min BUN/Creatinine Ratio 8.4 L 10.0-20.0 Serum Glucose 83 74-106 mg/dL Calcium Level 9.6 8.7-10.4 mg/dL Total Bilirubin 0.7 0.2-1.0 mg/dL Aspartate Amino Transferase (AST) 20 13-40 U/L Alanine Aminotransferase (ALT) 20 7-40 U/L Alkaline Phosphatase 53 46-116 U/L Total Protein 6.7 5.7-8.2 g/dL Albumin 4.4 3.2-4.8 g/dL Urine Color Colorless Yellow Urine Clarity Clear Clear Urine pH 7.5 5.0-9.0 Urine Specific [place] 1.007 1.001-1.035 Urine Protein Negative Negative Urine Ketones Negative Negative Urine Blood Negative Negative /uL Urine Nitrite Negative Negative Urine Bilirubin Negative Negative Urine Urobilinogen Normal Negative mg/dL Urine Leukocyte Esterase Negative Negative /uL Urine RBC 1 0 - 3 /hpf Urine WBC None seen 0 - 3 /hpf Urine Squamous Epithelial Cells Few <5 /hpf Urine Bacteria None seen None Seen /hpf Urine Glucose Normal Normal mg/dL POC Glucose 86 70-106 mg/dl Assessment Preprocedural cardiovascular examination Hypertension Left inguinal hernia Plan/Recommendation We will continue following plan/recommendations (Dr. Marquez): Echocardiogram reveals EF 55%, RVSP 29mmHg. Revised cardiac risk index (Minor criteria): Class I risk (3.9%, 30 day risk of , PA, or cardiac arrest). Cardiac symptoms have been ruled out. There is no underlying history of congestive heart failure, coronary artery disease, or equivalent of cardiac symptoms. Prior to this admission, the patient reports a good functional capacity. Per Cardiology standpoint, the patient is at an acceptable risk for moderate risk surgery. There is no additional cardiac workup indicated prior to surgery. Thank you for allowing us to care for this patient. Please call with any questions or concerns. Critical care time spent: 40 minutes This medical document was created using an electronic medical record system with voice recognition software and computerized dictation system. Although this document has been carefully reviewed, there might still be some phonetic and typographical errors. Occasional wrong-word or ``sound-alike substitutions may have occurred due to the inherent limitations of voice recognition software. These areas are purely typographical due to imperfections of the software programs and do not reflect any compromise in the patient's medical care. Please read the chart carefully and recognize, using context, where these substitutions have occurred. Plan discussed with: Patient Date of Service: Feb 01, 2024 Billing Provider: NICHOLE MARQUEZ MD Cardiology Common Codes: 30506-ZUSAKAB INP/OBS CARE (High) OPAL CHAPMAN Feb 01, 2024 16:52
--- NOTE | 2024-02-01 16:53 | DVH ---
EXAM: XY CHEST XRAY 1 VIEW TECHNIQUE: Single frontal chest radiograph CLINICAL HISTORY: Preprocedural evaluation COMPARISON: None Findings/Impression: Frontal chest radiograph demonstrates no acute osseous or superficial soft tissue abnormalities. The trachea is midline. The cardiac silhouette and mediastinum are within normal limits. No pneumothorax, pleural effusions, or consolidations.
[2024-02-01 18:11] VITALS: BP 114/72; PULSE 70; RESP 18; TEMP 98.2; O2SAT 96
[2024-02-01 20:54] VITALS: BP 142/71; PULSE 79; RESP 18; TEMP 97.8; O2SAT 98
[2024-02-01 21:39] VITALS: BP 142/71; PULSE 79; RESP 18; TEMP 97.8
[2024-02-01] MEDS: FAMOTIDINE 20 MG TAB PO SCH (21:55)
[2024-02-02] VITALS (9 sets, daily range): BP systolic 98–145; BP diastolic 53–94; PULSE 52–95; RESP 15–18; TEMP 97.3–98.2; O2SAT 92–98
[2024-02-02 06:50] LABS: Anion Gap 6 (5-15); Calcium 9.5 mg/dL (8.7-10.4); Carbon Dioxide 24 mmol/L (20-31); Chloride 105 mmol/L (98-107); Potassium 3.9 mmol/L (3.5-5.1)
[2024-02-02 06:54] LABS: Basophils # (auto) 0 10 ^3/uL (0-0.2); Basophils % (auto) 0.7 % (0.0-2.0); Eosinophils # (auto) 0.3 10 ^3/uL (0-0.8); Eosinophils % (auto) 4.6 % (0.0-7.0); Hematocrit 39.5 % (41.0-53.0); Hemoglobin 13.8 g/dL (13.5-17.5); Lymphocytes # (auto) 1.6 10 ^3/uL (0.4-5.4); Lymphocytes % (auto) 26.3 % (10.0-50.0); Mean Corpuscular Hemoglobin 32.3 pg (28.0-32.0); Mean Corpuscular Volume 92.5 fL (80.0-100.0); Monocytes # (auto) 0.6 10 ^3/uL (0-1.3); Monocytes % (auto) 9.5 % (0.0-12.0); Neutrophils # (auto) 3.6 10 ^3/uL (1.6-8.6); Neutrophils % (auto) 58.9 % (37.0-80.0); Nucleated Red Blood Cells % 0.1 %; Platelet Count (auto) 291 10^3/uL (140-450); Red Blood Cells 4.27 10^6/uL (4.5-5.90); Red Cell Distribution Width 13.3 % (11.8-14.3); White Blood Cell 6.1 10^3/uL (4.4-10.8)
[2024-02-02 06:56] LABS: Glucose 105 mg/dL (74-106); Triglycerides 78 mg/dL (< 150)
[2024-02-02 06:57] LABS: LDL Cholesterol 89 mg/dL (< 100)
[2024-02-02 06:58] LABS: Cholesterol 129 mg/dL (< 200); HDL Cholesterol 33 mg/dL (40-59)
[2024-02-02 07:00] LABS: BUN/Creatinine Ratio 6.7 (10.0-20.0); Blood Urea Nitrogen < 5 mg/dL (9-23); Sodium 135 mmol/L (136-145)
--- NOTE | 2024-02-02 07:24 | DVHINCON2 ---
Date of service: Feb 01, 2024 Reason for Consultation left inguinal hernia History of Present Illness History Source: Patient, MD Notes Exam Limitations: No limitations HPI 73 Year old male presented to the ER with complaint of abdominal pain and left groin pain. Patient states pain is 10/10 and sharp. Patient states he has never had the pain this bad in he past until today. Home Meds Reported Medications Enalapril Maleate (Enalapril Maleate) 10 Mg Tab, 1 TAB PO DAILY 01/05/24 Abdominal Pain Radiation: RLQ Past Medical History Cardiac: HTN Pulmonary: No pertinent Hx Central Nervous System: No pertinent Hx GI: No pertinent Hx Hemotology/Oncology: No pertinent Hx Hepatobiliary: No pertinent Hx Psychiatric: No pertinent Hx Musculoskeletal: No pertinent Hx Rheumotologic: No pertinent Hx Infectious Disease: No peritnent Hx ENT: No pertinent Hx Renal/: No pertinent Hx Endocrine: No pertinent Hx Dermatology: No pertinent Hx Past Surgical History: No pertinent Hx Family History: No pertinent Hx Patient Family History: Patient reports no known family medical history. Smoker: No Hx (Negative) Alocohol: None Drugs: None Lives with: With family Review of Systems Constitutional: No symptom reported Ears, Nose, & Throat: No symptom reported Eyes: No symptom reported Pulmonary/Respiratory: No symptom reported Cardiovascular: No symptom reported Gastrointestinal: No symptom reported Genitourinary: No symptom reported Musculoskeletal: No symptom reported Skin: No symptom reported Psychiatric: No symptom reported Endocrine: No symptom reported Hemotologic/Lymphatic: No symptom reported H&P Exam Vital Signs Vital Signs Date Time Temp Pulse Resp B/P (MAP) Pulse Ox O2 Delivery O2 Flow Rate FiO2 02/02/24 05:00 97.8 76 18 117/75 (89) 98 97.8 01/31/24 20:48 Room Air 01/31/24 14:34 0 21 General Appeara: Well developed, Well nourished, Normal Appearance Head Exam: Normal inspection Neck Exam: Normal inspection Abdominal Pain Onset Location: 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 Exam: Normal hearing, Normal speech, PERRL Neuro/Mental St: Alert, Oriented Appearance: Appropriate appearance, Appropriate insight Eye contact/ Speech: Cooperative, Good eye contact, Normal speech Skin Exam: Normal inspection, Normal color, Warm/dry Labs/Xrays Labs Test 02/02/24 05:47 02/01/24 15:55 02/01/24 03:58 01/31/24 15:57 Range/Units White Blood Count 6.1 4.4-10.8 10^3/uL Red Blood Count 4.27 L 4.5-5.90 10^6/uL Hemoglobin 13.8 13.5-17.5 g/dL Hematocrit 39.5 L 41.0-53.0 % Mean Corpuscular Volume 92.5 80.0-100.0 fL Mean Corpuscular Hemoglobin 32.3 H 28.0-32.0 pg Mean Corpuscular Hemoglobin Concent 35.0 32.0-36.0 g/dL Red Cell Distribution Width 13.3 11.8-14.3 % Platelet Count 291 140-450 10^3/uL Mean Platelet Volume 6.8 L 6.9-10.8 fL Neutrophils (%) (Auto) 58.9 37.0-80.0 % Lymphocytes (%) (Auto) 26.3 10.0-50.0 % Monocytes (%) (Auto) 9.5 0.0-12.0 % Eosinophils (%) (Auto) 4.6 0.0-7.0 % Basophils (%) (Auto) 0.7 0.0-2.0 % Neutrophils # (Auto) 3.6 1.6-8.6 10 ^3/uL Lymphocytes # (Auto) 1.6 0.4-5.4 10 ^3/uL Monocytes # (Auto) 0.6 0-1.3 10 ^3/uL Eosinophils # (Auto) 0.3 0-0.8 10 ^3/uL Basophils # (Auto) 0 0-0.2 10 ^3/uL Nucleated Red Blood Cells 0.1 % Sodium Level 135 #L 136-145 mmol/L Potassium Level 3.9 3.5-5.1 mmol/L Chloride Level 105 98-107 mmol/L Carbon Dioxide Level 24 20-31 mmol/L Anion Gap 6 5-15 Blood Urea Nitrogen < 5 L 9-23 mg/dL Creatinine 0.75 0.700-1.30 mg/dL Glomerular Filtration Rate Calc 95 >90 mL/min BUN/Creatinine Ratio 6.7 L 10.0-20.0 Serum Glucose 105 74-106 mg/dL Calcium Level 9.5 8.7-10.4 mg/dL Magnesium Level 2.0 1.6-2.6 mg/dL Triglycerides Level 78 < 150 mg/dL Cholesterol Level 129 < 200 mg/dL LDL Cholesterol 89 < 100 mg/dL HDL Cholesterol 33 L 40-59 mg/dL Prothrombin Time 11.7 9.3-11.8 sec Prothrombin Time INR 1.11 0.9-1.15 Activated Partial Thromboplast Time 30.0 24.5-34.5 SEC Total Bilirubin 0.7 0.2-1.0 mg/dL Aspartate Amino Transferase (AST) 20 13-40 U/L Alanine Aminotransferase (ALT) 20 7-40 U/L Alkaline Phosphatase 53 46-116 U/L Total Protein 6.7 5.7-8.2 g/dL Albumin 4.4 3.2-4.8 g/dL Urine Color Colorless Yellow Urine Clarity Clear Clear Urine pH 7.5 5.0-9.0 Urine Specific [place] 1.007 1.001-1.035 Urine Protein Negative Negative Urine Ketones Negative Negative Urine Blood Negative Negative /uL Urine Nitrite Negative Negative Urine Bilirubin Negative Negative Urine Urobilinogen Normal Negative mg/dL Urine Leukocyte Esterase Negative Negative /uL Urine RBC 1 0 - 3 /hpf Urine WBC None seen 0 - 3 /hpf Urine Squamous Epithelial Cells Few <5 /hpf Urine Bacteria None seen None Seen /hpf Urine Glucose Normal Normal mg/dL Test 01/31/24 13:53 Range/Units POC Glucose 86 70-106 mg/dl Assessment/Plan Plan 02/01/24 patient complaint of left groin pain, patient states pain became unbearable and he decided to come to ER to be evaluated on exam left inguinal area tender to palpation with visible and palpable hernia. review of CT confirms a left inguinal hernia 2.4 cm fat containing left inguinal hernia. Explained inguinal hernia repair to patient with all risks and complications in detail, patient would like to proceed with surgery Plan: Repair of left inguinal hernia possibly with mesh Plan discussed with: Patient, Other (Dr. Lafleur ) Visit Coding Surgery Date of Service if different f: Feb 02, 2024 Billing Provider: KRISTEL LAFLEUR MD Surgery Visit Codes: 35995 - INP CONSULT <80 MIN BARBARA CROOK NP Feb 02, 2024 07:24
[2024-02-02] MEDS: ENOXAPARIN SOD 40 MG/0.4 ML SYRINGE SC SCH (08:41)
[2024-02-02] MEDS: ceFAZolin 2 GM/D5W100ml 100 ML IV ONE (08:48)
[2024-02-02] MEDS: LIDOCAINE W/ EPINEPHRINE 1% 20ML VIAL ONE (08:48)
[2024-02-02] MEDS ORDERED: fentaNYL CITRATE 100 MCG/2 ML VL ONE (08:55)
[2024-02-02] MEDS ORDERED: MIDAZOLAM HCL 2MG/2ML 2ml VIAL (1mg/ml) ONE (08:55)
[2024-02-02] MEDS ORDERED: MEPERIDINE HCL (50 MG/ML) 1 ML VIAL ONE (08:55)
[2024-02-02] MEDS ORDERED: fentaNYL CITRATE 100 MCG/2 ML VL IV PRN (09:30)
[2024-02-02] MEDS: ONDANSETRON HCL 4 MG/2 ML VIAL IV ONE (09:30)
[2024-02-02] MEDS ORDERED: MORPHINE SULFATE 4 MG/ML SYR/VIAL IV PRN (09:30)
[2024-02-02] MEDS ORDERED: ePHEDrine SULFATE 50 MG/ML AMP IV PRN (09:30)
[2024-02-02] MEDS ORDERED: MIDAZOLAM HCL 2MG/2ML 2ml VIAL (1mg/ml) IV PRN (09:30)
[2024-02-02] MEDS ORDERED: HYDROmorphone HCL 2 MG/ML VL/or syr IV PRN ×2 (09:30→10:00)
[2024-02-02] MEDS ORDERED: hydrALAZINE HCL 20 MG/ML VL IV PRN (09:30)
[2024-02-02] MEDS: BUPIVACAINE HCL 0.25% P/F 10 ML VIAL ONE (09:35)
[2024-02-02] MEDS ORDERED: DexAMETHasone SOD PHOS 10MG/1ML VIAL INJ ONE (09:47)
[2024-02-02] MEDS ORDERED: PROPOFOL 10 MG/ML 20 ML IV ONE (09:47)
--- NOTE | 2024-02-02 09:52 | DVHSR ---
APPROVED REPORT EXAM: Two-dimensional and M-mode echocardiogram with Doppler and color Doppler. Blood Pressure: 117/75 mmHg INDICATION Evaluate cardiac function RISK FACTORS Height: 5'3", Weight: 132 DIMENSIONS LVDd4.3 (3.8-5.7cm)LA (2D)3.8 (1.9-4.0cm)Aortic Root2.9 (2.0-3.7cm) LVDs2.8 (2.5-4.0cm)LA (MM) (1.9-4.0cm)Aortic Cusp Exc1.6 (1.5-2.0cm) EF (%) 64.0 (55-70%)Rt. Atrium4.5 (1.9-4.0cm)Asc. Aorta3.2 cm IVSd0.6 (0.7-1.1cm)RV (D) (1.8-2.4cm) PWd0.7 (0.7-1.1cm) Mitral Valve MitralMitral Stenosis E wave0.74m/sMV Mean GR.mmHg A wave0.99m/sMV Peak GR.mmHg E/A ratio0.72D MVAcm2 DECEL [id number] 1/2 Timems Aortic Valve Aortic ValveAortic Stenosis V11.05m/Zee Mean GR.3mmHg V21.22m/Zee Peak GR.6mmHg LVOT Diameter2.0 (1.8-2.4cm)Doppler AVA2.70cm2 Pulmonic Valve V21.09m/s Tricuspid Valve TR Velocity2.53m/s [id number] Conclusion Normal left ventricular size and dimension. Normal left ventricular systolic function estimated ejec tion fraction 55%. There is a grade 1 diastolic dysfunction. Normal right ventricular size and dimension. Normal right ventricular systolic function. Slightly i ncreased right ventricular systolic pressure 29 mm of mercury. Normal biatrial size and dimension. Normal aortic valve structure and function. Normal mitral valve structure and function. Normal tricuspid valve structure and function. The pulmonary valve is grossly normal. No pericardial effusion.
[2024-02-02] MEDS: D5W/SOD CHL 0.45%/KCL 20MEQ 1,000 ML IV SCH (10:00)
[2024-02-02] MEDS: ENALAPRIL MALEATE 10 MG TAB PO SCH (10:00)
--- NOTE | 2024-02-02 12:35 | DVHPN2 ---
Progress Note - Dictate Date Seen: Feb 02, 2024 Medical Necessity Reason Pt with a Central, PICC or Fol: No vital signs Vital Sign Date Time Temp Pulse Resp B/P (MAP) Pulse Ox O2 Delivery O2 Flow Rate FiO2 02/02/24 10:05 Mask 10.0 97 02/02/24 10:05 97.8 75 15 100/47 (64) 97 97.8 Total Intake and Output 02/01/24 02/01/24 02/02/24 15:00 23:00 07:00 Intake Total 1000 ml Output Total 800 ml Balance 200 ml medications Current Medications Medications Dose Ordered Sig/Aicha Route Start Time Stop Time Status Last Admin Dose Admin Acetaminophen 325 mg Q4HP PRN PO 01/31/24 21:30 Acetaminophen/ Hydrocodone Bitart 1 tab Q4HP PRN PO 01/31/24 21:30 02/01/24 01:14 1 TAB Ondansetron HCl 4 mg Q4HP PRN IV 01/31/24 21:30 Morphine Sulfate 2 mg Q4HPRN PRN IV 01/31/24 21:30 Nitroglycerin 0.4 mg Q5MINP PRN SL 01/31/24 21:30 Morphine Sulfate 2 mg Q30M PRN IV 01/31/24 21:30 Enalapril Maleate 10 mg DAILY PO 02/02/24 10:00 Enoxaparin Sodium 40 mg DAILY SC 02/02/24 10:00 Famotidine 20 mg Q12HR PO 02/01/24 22:00 02/01/24 21:55 20 MG Potassium Chloride/Dextrose/ Sod Cl 1,000 ml @ 100 mls/hr Q10H IV 02/01/24 14:45 02/02/24 03:48 100 MLS/HR Hydralazine HCl 10 mg Q6HP PRN IV 02/01/24 16:30 02/01/24 16:43 10 MG Potassium Chloride/Dextrose/ Sod Cl 1,000 ml @ 100 mls/hr Q10H IV 02/02/24 10:00 Cefazolin Sodium/ Dextrose 50 ml @ 50 mls/hr Q8HR IV 02/02/24 14:00 Hydromorphone HCl 1 mg Q3HPRN PRN IV 02/02/24 10:00 objective General Appearance: alert, no distress HEENT: EOMI, PERRLA, normal external inspect of ears, no icterus, no nasal drainage Neck: no carotid bruit, no jugular venous distention (JVD), no lymphadenopathy Chest: normal thorax Respiratory: clear to auscultation, normal air movement Cardiovascular: regular rate and rhythm, no diastolic murmur, no jugular venous distention (JVD), no rub, no systolic murmur Abdominal: soft, no hepatomegaly, no mass, no splenomegaly Genitourinary: grossly normal external Musculoskeletal: no joint tenderness, no swelling Extremities: normal pulses, no calf tenderness, no clubbing, no cyanosis, no edema Skin: no bruising, no jaundice, no rash Neurological: alert, No focal deficit laboratory and microbiology Laboratory Tests 02/02/24 05:47 Test 02/02/24 05:47 Range/Units Serum Glucose 105 74-106 mg/dL Problem List 1. Benign Essential HTN Antihypertensives, Monitoring 2. Left inguinal hernia causing pain Medication, Monitoring 3. Gallstones Surgical Consult, monitoring Assessment/Plan Subjective Patient is awake alert Objective Patient is somewhat drowsy. I did update his at bedside. Patient is status post left inguinal hernia repair by general surgeon. Blood pressure has been elevated in 170s. Blood pressure is now improved once he had surgery and is not having any pain. Plan Continue current treatment. Patient was started on a clear liquid diet. Advance diet per general surgery. Possible discharge in a.m. Plan discussed with: Patient, Other CHAN RUVALCABA NP Feb 02, 2024 12:35
--- NOTE | 2024-02-02 13:12 | DVHOP ---
DATE OF SURGERY: 02/02/2024 PREOPERATIVE DIAGNOSIS: Left inguinal hernia (symptomatic). POSTOPERATIVE DIAGNOSIS: Left inguinal hernia (symptomatic). SURGEON: Marquez Lafleur MD USER EXPERIENCE LEAD: Kenrick Rodriguez. ANESTHESIA: General endotracheal. ANESTHESIOLOGIST: Dr. Ortega. PROCEDURE: Repair of left direct inguinal hernia. DESCRIPTION OF PROCEDURE: Under general endotracheal anesthesia, with the patient's skin prepped and draped, an incision was made in the left groin over the visible palpable bulge. The patient's incision was carried through adipose tissue, Boni's fascia onto the fibers of external oblique aponeurosis. The external inguinal ring was patulous and the cord structures were affected by a lipoma. The patient's cord structures were encircled with a Tru drain and retracted laterally. The direct herniation was then dissected free of cremasteric muscles and the direct hernia was reduced. The floor of the hernia was repaired using nonabsorbable sutures through conjoined tendon Jeremiah's ligament and then transitional suture into the Poupart's ligament. The internal ring was palpated with a forceps tip and accommodated forceps comfortably, so as to make sure that the cord was not being strangulated. The wound was irrigated, hemostasis meticulously accomplished. Testicle placed on tension into its scrotal compartment. Subcutaneous tissues and skin were approximated using Monocryl sutures, Dermabond glue and Steri-Strips. The patient remained stable throughout the procedure, left the operating room following an accurate needle and sponge count. His was thoroughly informed at [phone]. Marquez Lafleur MD PF TID: [id number] RECEIPT: [id number]
--- NOTE | 2024-02-02 13:14 | ECG ---
[facility] Test Date: 2024-01-31 Test Time: 13:59:21 Pat Name: RUFUS VILLARREAL Department: ER Room: 0240T A Gender: M [employer]: AMY : 1950 Requested By: SURYA SKELTON Order Number: [id number] Reading MD: Bernardo Gipson Measurements Intervals [place] Rate: 82 P: 53 MT: 171 QRS: 81 QRSD: 86 T: 71 QT: 347 QTc: 406 Interpretive Statements Sinus rhythm Borderline right axis deviation Electronically Signed On 02-04-2024 12:59:16 PDT by Bernardo Giposn Please click the below link to view image of tracing.
[2024-02-02] MEDS: ceFAZolin 2 GM/D5W50ml 50 ML IV SCH (13:56)
--- NOTE | 2024-02-02 20:43 | DVHPN2 ---
Progress Note - Dictate Date Seen: Feb 02, 2024 Medical Necessity Reason Pt with a Central, PICC or Fol: No Subjective Patient seen at bedside He is resting comfortably Patient underwent left inguinal hernia repair today Last colonoscopy was over five years vital signs Vital Sign Date Time Temp Pulse Resp B/P (MAP) Pulse Ox O2 Delivery O2 Flow Rate FiO2 02/02/24 20:00 89 17 98 Room Air* 0 21 02/02/24 17:00 98.2 144/94 (111) 98.2 Total Intake and Output 02/01/24 02/01/24 02/02/24 15:00 23:00 07:00 Intake Total 1000 ml Output Total 800 ml Balance 200 ml medications Current Medications Medications Dose Ordered Sig/Aicha Route Start Time Stop Time Status Last Admin Dose Admin Acetaminophen 325 mg Q4HP PRN PO 01/31/24 21:30 Acetaminophen/ Hydrocodone Bitart 1 tab Q4HP PRN PO 01/31/24 21:30 02/02/24 14:53 1 TAB Ondansetron HCl 4 mg Q4HP PRN IV 01/31/24 21:30 Morphine Sulfate 2 mg Q4HPRN PRN IV 01/31/24 21:30 Nitroglycerin 0.4 mg Q5MINP PRN SL 01/31/24 21:30 Morphine Sulfate 2 mg Q30M PRN IV 01/31/24 21:30 Enalapril Maleate 10 mg DAILY PO 02/02/24 10:00 Enoxaparin Sodium 40 mg DAILY SC 02/02/24 10:00 Famotidine 20 mg Q12HR PO 02/01/24 22:00 02/01/24 21:55 20 MG Potassium Chloride/Dextrose/ Sod Cl 1,000 ml @ 100 mls/hr Q10H IV 02/01/24 14:45 02/02/24 03:48 100 MLS/HR Hydralazine HCl 10 mg Q6HP PRN IV 02/01/24 16:30 02/01/24 16:43 10 MG Potassium Chloride/Dextrose/ Sod Cl 1,000 ml @ 100 mls/hr Q10H IV 02/02/24 10:00 Cefazolin Sodium/ Dextrose 50 ml @ 50 mls/hr Q8HR IV 02/02/24 14:00 02/02/24 13:56 50 MLS/HR Hydromorphone HCl 1 mg Q3HPRN PRN IV 02/02/24 10:00 objective General: NAD, AAOX3 Chest: lung ruiz clear to auscultation Heart: RRR, no murmur Abdomen: non-distended, tenderness left groin area, left groin dressing dry +BS laboratory and microbiology Laboratory Tests 02/02/24 05:47 Test 02/02/24 05:47 Range/Units Serum Glucose 105 74-106 mg/dL Problems(with codes): (1) Left inguinal hernia (2) Gallstones (3) Hypertensive urgency Prognosis Plan Continue supportive care Advance diet as tolerated IV antibiotics Outpatient follow up with GI Services for elective colonoscopy Plan discussed with: Patient, Spouse JONATHAN GODOY MD Feb 02, 2024 20:43
[2024-02-02] MEDS: MORPHINE SULFATE INJ 2 MG/ml SYRG IV PRN (22:50)
[2024-02-03] VITALS (8 sets, daily range): BP systolic 125–160; BP diastolic 75–89; PULSE 75–94; RESP 14–18; TEMP 97.1–98.6; O2SAT 96–99
--- NOTE | 2024-02-03 14:03 | DVHDS2 ---
Discharge Summary Date of Admission Jan 31, 2024 at 21:31 Date of Discharge: Feb 03, 2024 Labs/Diagnostic Data: Laboratory Results Test 02/02/24 05:47 02/01/24 15:55 02/01/24 03:58 01/31/24 15:57 White Blood Count 6.1 10^3/uL (4.4-10.8) Red Blood Count 4.27 10^6/uL (4.5-5.90) Hemoglobin 13.8 g/dL (13.5-17.5) Hematocrit 39.5 % (41.0-53.0) Mean Corpuscular Volume 92.5 fL (80.0-100.0) Mean Corpuscular Hemoglobin 32.3 pg (28.0-32.0) Mean Corpuscular Hemoglobin Concent 35.0 g/dL (32.0-36.0) Red Cell Distribution Width 13.3 % (11.8-14.3) Platelet Count 291 10^3/uL (140-450) Mean Platelet Volume 6.8 fL (6.9-10.8) Neutrophils (%) (Auto) 58.9 % (37.0-80.0) Lymphocytes (%) (Auto) 26.3 % (10.0-50.0) Monocytes (%) (Auto) 9.5 % (0.0-12.0) Eosinophils (%) (Auto) 4.6 % (0.0-7.0) Basophils (%) (Auto) 0.7 % (0.0-2.0) Neutrophils # (Auto) 3.6 10 ^3/uL (1.6-8.6) Lymphocytes # (Auto) 1.6 10 ^3/uL (0.4-5.4) Monocytes # (Auto) 0.6 10 ^3/uL (0-1.3) Eosinophils # (Auto) 0.3 10 ^3/uL (0-0.8) Basophils # (Auto) 0 10 ^3/uL (0-0.2) Nucleated Red Blood Cells 0.1 % Sodium Level 135 mmol/L (136-145) Potassium Level 3.9 mmol/L (3.5-5.1) Chloride Level 105 mmol/L (98-107) Carbon Dioxide Level 24 mmol/L (20-31) Anion Gap 6 (5-15) Blood Urea Nitrogen < 5 mg/dL (9-23) Creatinine 0.75 mg/dL (0.700-1.30) Glomerular Filtration Rate Calc 95 mL/min (>90) BUN/Creatinine Ratio 6.7 (10.0-20.0) Serum Glucose 105 mg/dL (74-106) Hemoglobin A1c 4.7 % A1C (<5.7) Calcium Level 9.5 mg/dL (8.7-10.4) Magnesium Level 2.0 mg/dL (1.6-2.6) Triglycerides Level 78 mg/dL (< 150) Cholesterol Level 129 mg/dL (< 200) LDL Cholesterol 89 mg/dL (< 100) HDL Cholesterol 33 mg/dL (40-59) Prothrombin Time 11.7 sec (9.3-11.8) Prothrombin Time INR 1.11 (0.9-1.15) Activated Partial Thromboplast Time 30.0 SEC (24.5-34.5) Total Bilirubin 0.7 mg/dL (0.2-1.0) Aspartate Amino Transferase (AST) 20 U/L (13-40) Alanine Aminotransferase (ALT) 20 U/L (7-40) Alkaline Phosphatase 53 U/L (46-116) Total Protein 6.7 g/dL (5.7-8.2) Albumin 4.4 g/dL (3.2-4.8) Urine Color Colorless (Yellow) Urine Clarity Clear (Clear) Urine pH 7.5 (5.0-9.0) Urine Specific [place] 1.007 (1.001-1.035) Urine Protein Negative (Negative) Urine Ketones Negative (Negative) Urine Blood Negative /uL (Negative) Urine Nitrite Negative (Negative) Urine Bilirubin Negative (Negative) Urine Urobilinogen Normal mg/dL (Negative) Urine Leukocyte Esterase Negative /uL (Negative) Urine RBC 1 /hpf (0 - 3) Urine WBC None seen /hpf (0 - 3) Urine Squamous Epithelial Cells Few /hpf (<5) Urine Bacteria None seen /hpf (None Seen) Urine Glucose Normal mg/dL (Normal) Test 01/31/24 13:53 POC Glucose 86 mg/dl (70-106) Other Laboratory Tests 02/02/24 05:47 Brief Hx & Hospital Course: Patient is a 73 year old male who is presenting to the Emergency Department with a complaint of abdominal pain. Patient states that he has been experiencing left suprapubic pain for 1x week with dizziness. Patient denies Nausea, Vomiting, or Diarrhea. Patient also denies SOB, Fever, Headache, or Chills. While in the emergency department the patient was evaluated by the provider, Labs, vital signs, and imagining monitored. Patient was admitted on January 31, 2024 for pain to his left groin. Imaging showed patient had an inguinal hernia. Gastroenterology as well as general surgery was consulted. Patient was positive for gallstones but negative for acute cholecystitis. Per GI patient can follow-up outpatient for elective colonoscopy. Patient was seen by general surgery. They are status post left inguinal hernia repair on 02/02/2024. Patient was started on antibiotics. Patient was initiated on clear liquid diet and it was advanced to a soft diet. Patient had a bowel movement prior to discharge. Patient was also seen by cardiology for cardiac clearance. Estimated EF was 55%. Patient will follow-up with her PCP in 1 week and they will follow-up with general surgery in 1 to 2 weeks. Patient was given a prescription for pain medication. The patient received proper medical treatment and medications. Vital signs, Imaging and Laboratory Work was monitored daily. All consults recommendations were followed as provided. There were no complaints or new complaints upon discharge, all questions and concerns were answered. Patient was advised to return to the ER or call 911 if any headaches, dizziness, shortness of breath, chest pain, bleeding, fevers, or worsening of medical condition. Patient/Family was counseled about treatment plan, medications, possible side effects, patient verbalized understanding. All questions were answered to the best of my ability. The patient symptoms improved and they are okay to be DC. Condition at Discharge: Stable Final Diagnosis/Problems List Benign Essential HTN Left inguinal hernia causing pain Gallstones Discharge Disposition: Home Discharge Statement: "Patient was advised to return to the ER or call 911 if any headaches, dizziness, shortness of breath, chest pain, abdominal pain, bleeding, fevers, or worsening of medical condition. Patient was counseled about treatment plan, medications, possible side effects, patientverbalized understanding. All questions were answered to the best of my ability. This discharge took greater then 30 minutes in planning, reviewing documentation, counseling the patient, and discussing with other team members." ASSESSMENT ASSESSMENT Assessment CHAN RUVALCABA NP Feb 03, 2024 14:03
[2024-02-03] MEDS ORDERED: HYDR-4902 PO (14:04)
[2024-02-03] MEDS ORDERED: SENN-58 PO (14:04)
--- NOTE | 2024-02-03 17:51 | DVHPN2 ---
Progress Note Date Seen: Feb 03, 2024 Resident Creating Document: RAQUEL BENNETT RESIDENT Medical Necessity Reason Pt with a Central, PICC or Fol: No Medical Necessity Reason stable post hernia repair Subjective Review of Systems Patient seen at bedside He is resting comfortably. Now new complaints s/p left inguinal hernia repair 02/02/2024 Last colonoscopy was over five years Objective vital signs Vital Sign Date Time Temp Pulse Resp B/P (MAP) Pulse Ox O2 Delivery O2 Flow Rate FiO2 02/03/24 16:52 98.6 89 18 151/78 (102) 96 98.6 02/03/24 08:00 Room Air* 0 21 Total Intake and Output 02/02/24 02/02/24 02/03/24 15:00 23:00 07:00 Intake Total 100 ml 3060 ml 300 ml Output Total 1300 ml Balance 100 ml 3060 ml -1000 ml medications Current Medications Medications Dose Ordered Sig/Aicha Route Start Time Stop Time Status Last Admin Dose Admin Acetaminophen 325 mg Q4HP PRN PO 01/31/24 21:30 Acetaminophen/ Hydrocodone Bitart 1 tab Q4HP PRN PO 01/31/24 21:30 02/03/24 17:11 1 TAB Ondansetron HCl 4 mg Q4HP PRN IV 01/31/24 21:30 Morphine Sulfate 2 mg Q4HPRN PRN IV 01/31/24 21:30 02/02/24 22:50 2 MG Nitroglycerin 0.4 mg Q5MINP PRN SL 01/31/24 21:30 Morphine Sulfate 2 mg Q30M PRN IV 01/31/24 21:30 Enalapril Maleate 10 mg DAILY PO 02/02/24 10:00 02/03/24 09:01 10 MG Enoxaparin Sodium 40 mg DAILY SC 02/02/24 10:00 02/03/24 09:02 40 MG Famotidine 20 mg Q12HR PO 02/01/24 22:00 02/03/24 09:01 20 MG Potassium Chloride/Dextrose/ Sod Cl 1,000 ml @ 100 mls/hr Q10H IV 02/01/24 14:45 02/03/24 17:12 100 MLS/HR Hydralazine HCl 10 mg Q6HP PRN IV 02/01/24 16:30 02/01/24 16:43 10 MG Potassium Chloride/Dextrose/ Sod Cl 1,000 ml @ 100 mls/hr Q10H IV 02/02/24 10:00 Cefazolin Sodium/ Dextrose 50 ml @ 50 mls/hr Q8HR IV 02/02/24 14:00 02/03/24 15:02 50 MLS/HR Hydromorphone HCl 1 mg Q3HPRN PRN IV 02/02/24 10:00 Examination General: NAD, AAOX3 Chest: lung ruiz clear to auscultation Heart: RRR, no murmur Abdomen: non-distended, tenderness left groin area, left groin dressing dry +BS laboratory and microbiology Laboratory Tests 02/02/24 05:47 Test 02/02/24 05:47 Range/Units Serum Glucose 105 74-106 mg/dL Problem List/Assessment/Plan Problem List/Assessment/Plan (1) Left inguinal hernia s/p repaired (2) Gallstones (3) Hypertensive urgency Prognosis Plan Continue supportive care Advance diet as tolerated IV antibiotics Outpatient follow up with GI Services for elective colonoscopy Plan discussed with: Patient Dietary Evaluation Review Comments: [place] PO intake to meet 75% of his needs Expected Outcomes/Goals: maintain RAQUEL NAIR RESIDENT Feb 03, 2024 17:51
[2024-02-04 05:00] VITALS: BP 135/89; PULSE 81; RESP 16; TEMP 98; O2SAT 97
[2024-02-04 08:00] VITALS: PULSE 77
[2024-02-04 09:00] VITALS: BP 174/102; PULSE 82; RESP 16; TEMP 98; O2SAT 96
--- NOTE | 2024-02-04 12:04 | DVHPN2 ---
Progress Note Date Seen: Feb 04, 2024 Medical Necessity Reason Pt with a Central, PICC or Fol: No Objective vital signs Vital Sign Date Time Temp Pulse Resp B/P (MAP) Pulse Ox O2 Delivery O2 Flow Rate FiO2 02/04/24 09:21 174/102 02/04/24 09:00 98.0 82 16 96 98.0 02/03/24 20:00 Room Air* 0 21 Total Intake and Output 02/03/24 02/03/24 02/04/24 15:00 23:00 07:00 Intake Total 50 ml 2720 ml 300 ml Output Total 1400 ml Balance 50 ml 1320 ml 300 ml medications Current Medications Medications Dose Ordered Sig/Aicha Route Start Time Stop Time Status Last Admin Dose Admin Acetaminophen 325 mg Q4HP PRN PO 01/31/24 21:30 Acetaminophen/ Hydrocodone Bitart 1 tab Q4HP PRN PO 01/31/24 21:30 02/03/24 17:11 1 TAB Ondansetron HCl 4 mg Q4HP PRN IV 01/31/24 21:30 Morphine Sulfate 2 mg Q4HPRN PRN IV 01/31/24 21:30 02/04/24 07:03 2 MG Nitroglycerin 0.4 mg Q5MINP PRN SL 01/31/24 21:30 Morphine Sulfate 2 mg Q30M PRN IV 01/31/24 21:30 Enalapril Maleate 10 mg DAILY PO 02/02/24 10:00 02/04/24 09:21 10 MG Enoxaparin Sodium 40 mg DAILY SC 02/02/24 10:00 02/04/24 09:21 40 MG Famotidine 20 mg Q12HR PO 02/01/24 22:00 02/04/24 09:21 20 MG Potassium Chloride/Dextrose/ Sod Cl 1,000 ml @ 100 mls/hr Q10H IV 02/01/24 14:45 02/04/24 06:44 100 MLS/HR Hydralazine HCl 10 mg Q6HP PRN IV 02/01/24 16:30 02/01/24 16:43 10 MG Potassium Chloride/Dextrose/ Sod Cl 1,000 ml @ 100 mls/hr Q10H IV 02/02/24 10:00 Cefazolin Sodium/ Dextrose 50 ml @ 50 mls/hr Q8HR IV 02/02/24 14:00 02/04/24 06:46 50 MLS/HR Hydromorphone HCl 1 mg Q3HPRN PRN IV 02/02/24 10:00 laboratory and microbiology Laboratory Tests 02/02/24 05:47 Test 02/02/24 05:47 Range/Units Serum Glucose 105 74-106 mg/dL Problem List/Assessment/Plan Problem List/Assessment/Plan 02/04/24 hernia wound ok, no scrotal swelling, abdomen non tender, ok to discharge, patient to avoid heavy lifting or straining, and return to see me in two weeks, may remove bandage and shower after 72 hours Plan discussed with: Patient Dietary Evaluation Review Comments: [place] PO intake to meet 75% of his needs Expected Outcomes/Goals: maintain BW KRISTEL JONES MD Feb 04, 2024 12:04
[2024-02-04] MEDS ORDERED: PHENYLEPHRINE HCL 10 MG/ML VL IV ONE (13:00)
--- NOTE | 2024-02-04 14:45 | DVHPN2 ---
Progress Note - Dictate Date Seen: Feb 03, 2024 Medical Necessity Reason Pt with a Central, PICC or Fol: No vital signs Vital Sign Date Time Temp Pulse Resp B/P (MAP) Pulse Ox O2 Delivery O2 Flow Rate FiO2 02/04/24 09:21 174/102 02/04/24 09:00 98.0 82 16 96 98.0 02/04/24 08:00 Room Air* 0 21 Total Intake and Output 02/03/24 02/03/24 02/04/24 15:00 23:00 07:00 Intake Total 50 ml 2720 ml 300 ml Output Total 1400 ml Balance 50 ml 1320 ml 300 ml medications Current Medications Medications Dose Ordered Sig/Aicha Route Start Time Stop Time Status Last Admin Dose Admin Acetaminophen 325 mg Q4HP PRN PO 01/31/24 21:30 Acetaminophen/ Hydrocodone Bitart 1 tab Q4HP PRN PO 01/31/24 21:30 02/03/24 17:11 1 TAB Ondansetron HCl 4 mg Q4HP PRN IV 01/31/24 21:30 Morphine Sulfate 2 mg Q4HPRN PRN IV 01/31/24 21:30 02/04/24 07:03 2 MG Nitroglycerin 0.4 mg Q5MINP PRN SL 01/31/24 21:30 Morphine Sulfate 2 mg Q30M PRN IV 01/31/24 21:30 Enalapril Maleate 10 mg DAILY PO 02/02/24 10:00 02/04/24 09:21 10 MG Enoxaparin Sodium 40 mg DAILY SC 02/02/24 10:00 02/04/24 09:21 40 MG Famotidine 20 mg Q12HR PO 02/01/24 22:00 02/04/24 09:21 20 MG Potassium Chloride/Dextrose/ Sod Cl 1,000 ml @ 100 mls/hr Q10H IV 02/01/24 14:45 02/04/24 06:44 100 MLS/HR Hydralazine HCl 10 mg Q6HP PRN IV 02/01/24 16:30 02/01/24 16:43 10 MG Potassium Chloride/Dextrose/ Sod Cl 1,000 ml @ 100 mls/hr Q10H IV 02/02/24 10:00 Cefazolin Sodium/ Dextrose 50 ml @ 50 mls/hr Q8HR IV 02/02/24 14:00 02/04/24 06:46 50 MLS/HR Hydromorphone HCl 1 mg Q3HPRN PRN IV 02/02/24 10:00 objective General Appearance: alert, no distress HEENT: EOMI, PERRLA, normal external inspect of ears, no icterus, no nasal drainage Neck: no carotid bruit, no jugular venous distention (JVD), no lymphadenopathy Chest: normal thorax Respiratory: clear to auscultation, normal air movement Cardiovascular: regular rate and rhythm, no diastolic murmur, no jugular venous distention (JVD), no rub, no systolic murmur Abdominal: soft, no hepatomegaly, no mass, no splenomegaly Genitourinary: grossly normal external Musculoskeletal: no joint tenderness, no swelling Extremities: normal pulses, no calf tenderness, no clubbing, no cyanosis, no edema Skin: no bruising, no jaundice, no rash Neurological: alert, No focal deficit laboratory and microbiology Laboratory Tests 02/02/24 05:47 Test 02/02/24 05:47 Range/Units Serum Glucose 105 74-106 mg/dL Problem List 1. Benign Essential HTN Antihypertensives, Monitoring 2. Left inguinal hernia causing pain Medication, Monitoring 3. Gallstones Surgical Consult, monitoring Assessment/Plan Subjective: Patient is awake and alert. Objective: Surgeon was not available at bedside to clear the patient for discharge. Patient was doing well, but discharge was not completed yesterday. Plan: Monitor patients progress and await surgical clearance. Continue current treatment. Dietary Evaluation Review Comments: [place] PO intake to meet 75% of his needs Expected Outcomes/Goals: maintain BW Plan discussed with: Patient, Other CHAN RUVALCABA NP Feb 04, 2024 14:45
[2024-02-04] MEDS ORDERED: HYDR-4902 PO (16:36)
== END 2024-02-04 13:01 | disposition home or self-care (01) | DRG 351 ==
LOC: ER 13:33 → TELE 21:31 → TELE-EAST 02-01 20:54
PROVIDERS: ADMIT Internal Medicine; ATTEND Internal Medicine
PROC: 0YQ60ZZ Repair Left Inguinal Region, Open Approach (ICD-10-PCS; principal; 2024-02-02 09:01)
DX: K40.90 Unilateral inguinal hernia, without obstruction or gangrene, not specified as recurrent (principal); E87.1 Hypo-osmolality and hyponatremia; I10 Essential (primary) hypertension; K80.20 Calculus of gallbladder without cholecystitis without obstruction; G90.89 Other disorders of autonomic nervous system; I16.0 Hypertensive urgency; Z79.899 Other long term (current) drug therapy
CPT/HCPCS: 36415; 71045; 74176; 76705; 80048; 80053; 80061; 81001; 82962; 83036; 83735; 85025; 85610; 85730; 93005; 93306; 96360; 99291; G0378; J1100; J2250; J2704; J3490